=== PATIENT | male | born 1990 | race African-American/Black ===

== ENCOUNTER 2019-06-14 09:24 | Emergency (ER) | payer OTHER ==
[~2019-06-14] VITALS: Ht 172.7 cm; Wt 83.0 kg
[2019-06-14 09:36] VITALS: BP 115/58
[2019-06-14] MEDS ORDERED: NOHOMEMEDICATIONS (09:40)
== END 2019-06-14 10:10 | disposition home or self-care (01) ==
LOC: ER 09:24
PROVIDERS: Emergency Medicine
DX: A64 Unspecified sexually transmitted disease (principal); F17.210 Nicotine dependence, cigarettes, uncomplicated

== ENCOUNTER 2019-06-22 15:52 | Emergency (ER) | payer OTHER ==
[~2019-06-22] VITALS: Ht 170.2 cm; Wt 83.0 kg
[~2019-06-22 15:52] MED LIST: NOHOMEMEDICATIONS
[2019-06-22 16:49] VITALS: BP 110/78
== END 2019-06-22 16:50 | disposition home or self-care (01) ==
LOC: ER 15:52
DX: Z20.2 Contact with and (suspected) exposure to infections with a predominantly sexual mode of transmission (principal); F17.210 Nicotine dependence, cigarettes, uncomplicated; Z91.013 Allergy to seafood